=== PATIENT | female | born 1935 | race Caucasian/White ===

== ENCOUNTER 2017-07-12 16:57 | Emergency (ER) | payer OTHER ==
[2017-07-12 17:12] VITALS: BP 155/87; PULSE 78; RESP 17; TEMP 98.6; O2SAT 98
[2017-07-12] MEDS ORDERED: ERYTHROMYCIN 0.5% 1 GM OPHT.OINT EACHEYE ONE (17:31)
--- NOTE | 2017-07-12 17:36 | EDPHY ---
H & P Stated Complaint: Right eyelid swelling and arm pain and weakness Time Seen by Provider: 07/12/17 17:17 HPI/ROS: CHIEF COMPLAINT: Right eyelid swelling HISTORY OF PRESENT ILLNESS: Patient is a 81-year-old female who comes to the emergency department complaining of swelling and pain and mild erythema to her right upper eyelid. It began yesterday. No fevers. No discharge. She states that it has been very windy and she has had stuff in her eye. No eyeball pain. No change in her vision. The patient also remarks that she has chronic cervical stenosis and chronic right arm pain and that over the last 5 or 6 days she has noticed increased weakness in her right arm only. She states that she had trouble holding up the heavy kettle. She had an MRI and saw a spinal specialist 3 years ago at [place] but has not followed up. No fevers. No trauma. Normal sensation. She does not complain of any weakness or numbness in her legs or torso. REVIEW OF SYSTEMS: Constitutional: denies: chills, fever, recent illness, recent injury EENTM: See HPI denies: blurred vision, double vision, nose congestion Respiratory: denies: cough, shortness of breath Cardiac: denies: chest pain, irregular heart rate, lightheadedness, palpitations Gastrointestinal/Abdominal: denies: abdominal pain, diarrhea, nausea, vomiting, blood streaked stools Genitourinary: denies: dysuria, frequency, hematuria, pain Musculoskeletal: See HPI Skin: denies: lesions, rash, jaundice, bruising Neurological: denies: headache, numbness, paresthesia, tingling, dizziness, weakness Hematologic/Lymphatic: denies: blood clots, easy bleeding, easy bruising Immunologic/allergic: denies: HIV/AIDS, transplant EXAM: GENERAL: Well-appearing, well-nourished and in no acute distress. HEAD: Atraumatic, normocephalic. EYES: Patient has some erythema and mild swelling to her right upper eyelid at the base of the eyelashes. No discharge. No vision changes. Pupils equal round and reactive to light, extraocular movements intact, sclera anicteric, conjunctiva are normal. ENT: TMs normal, nares patent, oropharynx clear without exudates. Moist mucous membranes. NECK: Normal range of motion, supple without lymphadenopathy or JVD. LUNGS: Breath sounds clear to auscultation bilaterally and equal. No wheezes rales or rhonchi. HEART: Regular rate and rhythm without murmurs, rubs or gallops. ABDOMEN: Soft, nontender, normoactive bowel sounds. No guarding, no rebound. No masses appreciated. BACK: No CVA tenderness, no spinal tenderness, step-offs or deformities EXTREMITIES: Normal range of motion, no pitting or edema. No clubbing or cyanosis. NEUROLOGICAL: NIH stroke score 0, Cranial nerves II through XII grossly intact. Normal speech, normal gait. 5/5 strength, normal movement in all extremities, normal sensation, normal reflexes. No pronator drift, PSYCH: Normal mood, normal affect. SKIN: Warm, dry, normal turgor, no visible rashes or lesions. Source: Patient Exam Limitations: No limitations - Personal History Current Tetanus/Diphtheria Vaccine: Yes Current Tetanus Diphtheria and Acellular Pertussis (TDAP): Yes - Medical/Surgical History Hx Asthma: No Hx Chronic Respiratory Disease: No Hx Diabetes: No Hx Cardiac Disease: No Hx Renal Disease: No Hx Cirrhosis: No Hx Alcoholism: No Hx HIV/AIDS: No Hx Splenectomy or Spleen Trauma: No Other PMH: NECK STENOSIS - Family History Significant Family History: No pertinent family hx - Social History Smoking Status: Never smoked Alcohol Use: Sober Drug Use: None Constitutional: Initial Vital Signs Temperature (C) 37.0 C 07/12/17 17:09 Heart Rate 78 07/12/17 17:09 Respiratory Rate 17 07/12/17 17:09 Blood Pressure 155/87 H 07/12/17 17:09 O2 Sat (%) 98 07/12/17 17:09 O2 Delivery Mode Room Air Allergies/Adverse Reactions: lactose Allergy (Verified 07/12/17 17:07) nickel Allergy (Verified 07/12/17 17:07) Home Medications: Medication Instructions Recorded Erythromycin 0.5% 3.5 gm OP QID #1 opht.oint 07/12/17 Medical Decision Making ED Course/Re-evaluation: Patient has blepharitis to her right upper eyelid. I will start her on erythromycin ointment. She has no objective weakness or neurologic deficits on examination however she complains of subjective weakness in her right arm which is worsened over the last week or 2. She has chronic pain in that arm and shoulder from cervical stenosis. I offered to do an MRI to evaluate further. She declines because she wants to get it done at [facility]. I did call [facility] and they will arrange early follow-up for her to get a repeat MRI and follow up with her spine doctor. We discussed indications for returning to the emergency department. At this point there are no signs of stroke. Differential Diagnosis: Partial list of the Differential diagnosis considered include but were not limited to; blepharitis, cervical stenosis, radiculopathy, hordeolum, conjunctivitis and although unlikely based on the history and physical exam, I also considered Mullen's palsy, CVA, hemorrhage, trauma. I discussed these differential diagnoses and the plan with the patient as well as the usual and expected course. The patient understands that the diagnosis is provisional and that in medicine we are not always correct and that further workup is often warranted. Usual and customary warnings were given. All of the patient's questions were answered. The patient was instructed to return to the emergency department should the symptoms at all worsen or return, otherwise to followup with the physician as we discussed. - Data Points Medications Given: Discontinued Medications Erythromycin (Erythromycin 0.5%) 1 soumya EACHEYE ONCE ONE Stop: 07/12/17 17:32 Last Admin: 07/12/17 17:57 Dose: 1 soumya Departure - Departure Disposition: Home, Routine, Self-Care Clinical Impression: Radiculopathy, cervical region Blepharitis of right eye Qualifiers: Blepharitis type: unspecified type Eyelid: upper Qualified Code(s): H01.001 - Unspecified blepharitis right upper eyelid Condition: Fair Instructions: Erythromycin (Into the eye), Blepharitis (ED), Cervical Radiculopathy (ED) Referrals: [facility] ([facility],. [Edm Groups for Call Sched] - As per Instructions RAFA VALDEZ [Primary Care Provider] - 1-2 days without fail Prescriptions: Erythromycin 0.5% 3.5 gm OP QID #1 opht.oint
== END 2017-07-12 17:59 | disposition home or self-care (01) ==
DX: H01.001 Unspecified blepharitis right upper eyelid (principal); M54.12 Radiculopathy, cervical region